=== PATIENT | female | born 1990 | race Caucasian/White ===

== ENCOUNTER 2016-07-24 21:11 | Outpatient (CLI) ==
[2016-01-03 16:48] VITALS: BMI 20.9
== END 2016-07-24 21:12 | disposition home or self-care (01) ==
LOC: AMBL 21:11
PROVIDERS: ATTEND Emergency Medicine
DX: R51 Headache (principal); R11.10 Vomiting, unspecified

== ENCOUNTER 2016-08-24 15:07 | Outpatient (CLI) ==
[2016-01-03 16:48] VITALS: BMI 20.9
== END 2016-08-24 15:08 ==
LOC: AMBL 15:07
PROVIDERS: ATTEND Internal Medicine
DX: R10.9 Unspecified abdominal pain (principal); M54.5 Low back pain; R11.2 Nausea with vomiting, unspecified

== ENCOUNTER → 2016-11-11 | Outpatient (CLI) ==
[2016-11-12 00:21] VITALS: BMI 22.3
== END ==
LOC: AMBL 23:59
PROVIDERS: ATTEND Family Medicine
DX: T42.4X1A Poisoning by benzodiazepines, accidental (unintentional), initial encounter (principal); T43.591A Poisoning by other antipsychotics and neuroleptics, accidental (unintentional), initial encounter; T43.221A Poisoning by selective serotonin reuptake inhibitors, accidental (unintentional), initial encounter; R00.0 Tachycardia, unspecified; R53.1 Weakness; H53.8 Other visual disturbances

== ENCOUNTER 2016-11-12 00:09 | Emergency (ER) ==
[2016-11-12 00:21] VITALS: BP 150/92; TEMP 98.4; BMI 22.3
[2016-11-12] MEDS ORDERED: SODIUM CHLORIDE 1,000 ML IV STA (00:41)
[2016-11-12 00:55] LABS: BASOPHILS # (AUTO) 0.1 K/uL (0-0.2); BASOPHILS % (AUTO) 0.9 % (0.0-3.0); EOSINOPHILS # (AUTO) 0.1 K/ul (0.0-0.7); EOSINOPHILS % (AUTO) 1.1 % (0.0-7.0); HEMATOCRIT 35.6 % (37.0-47.0); HEMOGLOBIN 12.7 g/dl (12.0-16.0); IMMATURE GRANULOCYTE % (AUTO) 0.1 % (0.0-5.0); LYMPHOCYTES # (AUTO) 3.3 K/uL (0.60-3.4); LYMPHOCYTES % (AUTO) 47.3 (10.0-50.0); MEAN CORPUSCULAR HEMOGLOBIN 30.2 pg (27.0-31.0); MEAN CORPUSCULAR HGB CONC 35.7 (31.8-35.4); MEAN CORPUSCULAR VOLUME 84.8 fl (81.0-99.0); MONOCYTES # (AUTO) 0.4 K/uL (0.4-2.0); MONOCYTES % (AUTO) 5.7 (0-10); NEUTROPHILS # (AUTO) 3.1 K/ul (2.0-6.9); NEUTROPHILS % (AUTO) 44.9; PLATELET COUNT 226 10^3/uL (140-440); WHITE BLOOD COUNT 6.98 K/ul (4.6-10.2)
[2016-11-12 00:58] LABS: BILIRUBIN,URINE Negative (NEGATIVE); KETONES,URINE Negative (NEGATIVE); LEUKOCYTE ESTERASE ,URINE Negative (NEGATIVE); NITRITE,URINE Negative (NEGATIVE); PROTEIN,URINE Trace (NEGATIVE); URINE PREGNANCY INTERNAL QC INTERNAL QC VALID; URINE, BLOOD Negative (NEGATIVE)
[2016-11-12 01:00] LABS: ADD URINE MICROSCOPIC YES
[2016-11-12 01:01] LABS: BACTERIA,URINE 3+ (NOT PRESENT)
[2016-11-12 01:09] LABS: COCAIN SCREEN,URINE NEGATIVE (NEGATIVE)
[2016-11-12 01:14] LABS: ACETAMINOPHEN < 3 ug/ml (10-30); ALANINE AMINOTRANSFERASE 26 U/L (12-78); ALBUMIN 3.7 g/dL (3.4-5.0); ALBUMIN/GLOBULIN RATIO 1.32; ALKALINE PHOSPHATASE 55 U/L (42-98); ANION GAP 16.3; ASPARTATE AMINO TRANSFERASE 31 U/L (15-37); BILIRUBIN,TOTAL 0.33 mg/dL (0.00-1.20); BLOOD UREA NITROGEN 7 mg/dL (7-18); BUN/CREATININE RATIO 8.97; CALCIUM 9.6 mg/dL (8.2-10.2); CARBON DIOXIDE 20 mmol/L (21-32); CHLORIDE 108 mmol/L (98-107); CREATININE 0.78 mg/dL (0.60-1.30); GLUCOSE 98 mg/dL (70-110); MAGNESIUM 2.1 mg/dL (1.7-2.2); POTASSIUM 3.3 mmol/L (3.5-5.10); SALICYLATE 31.4 mg/dL (2.8-20.0); SODIUM 141 mmol/L (136-145); TOTAL PROTEIN 6.5 g/dL (6.4-8.2)
[2016-11-12 01:15] LABS: ABG BASE EXCESS 0 (-2.0-2.0); ABG HCO3 24.6 (22.0-26.0); ABG PCO2 37.1 mmHg (35-45); ABG PH 7.429 (7.35-7.45); ABG TCO2 26 (22.0-28.0)
[2016-11-12] MEDS ORDERED: ZOFRAN 4 MG/2 ML IVP STA (01:31)
[2016-11-12] MEDS ORDERED: DEMEROL 25 MG/ML SYRINGE IVP STA (01:31)
[2016-11-12] MEDS ORDERED: POTASSIUM CHLORIDE PREMIX RUN 40 MEQ in PREMIX 100 ML WATER 2 BAG IV STA (03:23)
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
[2016-11-12] MEDS ORDERED: SODIUM BICARBONATE 7.5% IVP STA ×3 (03:25→03:27)
[2016-11-12] MEDS ORDERED: DEXTROSE 5%-WATER IV SOLN 1,000 ML IV STA (03:27)
[2016-11-12] MEDS ORDERED: POTASSIUM CHLORIDE 40 MEQ VIAL-ADDITIVE ONLY IV ONE (03:32)
== END 2016-11-12 04:30 | disposition short-term general hospital (02) ==
LOC: ED 00:09
DX: T50.902A Poisoning by unspecified drugs, medicaments and biological substances, intentional self-harm, initial encounter (principal); F17.210 Nicotine dependence, cigarettes, uncomplicated
CPT/HCPCS: 36415; 80053; 80306; 80307; 81001; 81025; 82803; 83735; 85025; 87086; 93005; 93010; 96360; 96361; 96375; 99285

== ENCOUNTER 2016-11-12 04:30 | Outpatient (CLI) ==
[2016-11-12 00:21] VITALS: BMI 22.3
== END 2016-11-12 04:31 | disposition home or self-care (01) ==
LOC: AMBL 04:30
PROVIDERS: ATTEND Family Medicine
DX: T65.91XA Toxic effect of unspecified substance, accidental (unintentional), initial encounter (principal)

== ENCOUNTER 2017-03-25 20:09 | Emergency (ER) ==
[2017-03-25 20:11] VITALS: BMI 22.3
[2017-03-25 20:17] VITALS: TEMP 98.6
[2017-03-25] MEDS ORDERED: ZOFRAN 4 MG/2 ML IM STA (21:03)
[2017-03-25] MEDS ORDERED: DEMEROL 25 MG/ML SYRINGE IM STA (21:03)
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
[2017-03-25] MEDS ORDERED: DILAUDID 1 MG/ML SYRINGE IM STA (22:05)
[2017-03-26 05:34] VITALS: BP 144/82
== END 2017-03-25 23:40 | disposition home or self-care (01) ==
LOC: ED 20:09
DX: S31.41XA Laceration without foreign body of vagina and vulva, initial encounter (principal); F17.210 Nicotine dependence, cigarettes, uncomplicated; T74.21XA Adult sexual abuse, confirmed, initial encounter
CPT/HCPCS: 96372; 99283

== ENCOUNTER 2017-03-27 19:48 | Outpatient (CLI) | END 2017-03-27 19:49 | disposition short-term general hospital (02) | LOC: AMBL 19:48 | PROVIDERS: ATTEND Emergency Medicine | DX: R58 Hemorrhage, not elsewhere classified (principal); T74.21XD Adult sexual abuse, confirmed, subsequent encounter; R00.0 Tachycardia, unspecified; R06.4 Hyperventilation; S40.022D Contusion of left upper arm, subsequent encounter; S40.021D Contusion of right upper arm, subsequent encounter; S80.12XD Contusion of left lower leg, subsequent encounter; S80.11XD Contusion of right lower leg, subsequent encounter; Y09 Assault by unspecified means ==

== ENCOUNTER 2017-11-05 03:35 | Emergency (ER) ==
[2017-11-05 03:45] VITALS: BP 147/90; TEMP 99.1; BMI 23.2
[2017-11-05] MEDS ORDERED: TORADOL IM STA (04:22)
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
== END 2017-11-05 05:15 | disposition home or self-care (01) ==
LOC: ED 03:35
DX: T74.21XA Adult sexual abuse, confirmed, initial encounter (principal); S39.013A Strain of muscle, fascia and tendon of pelvis, initial encounter; S00.83XA Contusion of other part of head, initial encounter; S30.1XXA Contusion of abdominal wall, initial encounter; F17.210 Nicotine dependence, cigarettes, uncomplicated
CPT/HCPCS: 80306; 81001; 87086; 96372; 99283

== ENCOUNTER 2017-12-09 03:38 | Outpatient (CLI) | END 2017-12-09 04:00 | disposition short-term general hospital (02) | LOC: AMBL 03:38 | PROVIDERS: ATTEND Internal Medicine Geriatric Medicine | DX: N93.8 Other specified abnormal uterine and vaginal bleeding (principal); R10.2 Pelvic and perineal pain ==

== ENCOUNTER 2017-12-12 17:25 | Outpatient (CLI) | END 2017-12-12 17:45 | disposition short-term general hospital (02) | LOC: AMBL 17:25 | PROVIDERS: ATTEND Emergency Medicine | DX: N93.9 Abnormal uterine and vaginal bleeding, unspecified (principal); R03.1 Nonspecific low blood-pressure reading; R10.30 Lower abdominal pain, unspecified ==